=== PATIENT | male | born 1960 | race Caucasian/White ===

== ENCOUNTER 2016-08-15 23:53 | Emergency (ER) | payer BC ==
[~2016-08-15] VITALS: Ht 180.3 cm; Wt 99.8 kg
[2016-08-16] MEDS ORDERED: ALEV220C2 PO (00:02)
[2016-08-16] MEDS ORDERED: GAS-80CH PO (00:03)
[2016-08-16] MEDS ORDERED: PEPT262T2 PO (00:03)
[2016-08-16] MEDS ORDERED: KETOROLAC 30 MG/ML VIAL (J1885) IV ONE (01:00)
[2016-08-16 01:24] LABS: BASO % 0.2 % (0.0-1.0); EOS # 0.1 K/mm3 (0.0-0.50); EOS % 0.9 % (0.0-3.0); LARGE UNSTAINED CELL # 0.1 K/mm3 (0.0-0.4); LARGE UNSTAINED CELL % 0.5 % (0.0-4.0); LYMPH # 0.6 K/mm3 (1.5-4.5); LYMPH % 4.9 % (24.0-44.0); MEAN CORPUSCULAR HGB CONC 32.3 g/dl (32.0-36.5); MEAN CORPUSCULAR VOLUME 86.6 fl (80.0-96.0); MONO # 0.4 K/mm3 (0.0-0.8); MONO % 3.3 % (0.0-5.0); NEUTROPHILS # 11.9 K/mm3 (1.8-7.7); NEUTROPHILS % 90.1 % (36.0-66.0); PLATELET COUNT, AUTOMATED 218 k/mm3 (150-450); RED CELL DISTRIBUTION WIDTH 12.3 % (11.5-14.5); WHITE BLOOD COUNT 13.2 K/mm3 (4.0-10.0)
[2016-08-16 01:37] LABS: ALBUMIN 4.5 GM/DL (3.2-5.2); ALBUMIN/GLOBULIN RATIO 1.36 (1.00-1.93); ALKALINE PHOSPHATASE 99 U/L (45-117); ALT/SGPT 32 U/L (12-78); ANION GAP 7 MEQ/L (8-16); AST/SGOT 18 U/L (15-37); BILIRUBIN,DIRECT 0.2 MG/DL (0.0-0.2); BILIRUBIN,TOTAL 0.7 MG/DL (0.2-1.0); BLOOD UREA NITROGEN 15 MG/DL (7-18); CARBON DIOXIDE LEVEL 29 MEQ/L (21-32); CHLORIDE LEVEL 103 MEQ/L (98-107); CREATININE FOR GFR 0.94 MG/DL (0.70-1.30); GLOMERULAR FILTRATION RATE > 60.0 (>56); GLUCOSE, FASTING 147 MG/DL (70-105); SODIUM LEVEL 139 MEQ/L (136-145); TOTAL PROTEIN 7.8 GM/DL (6.4-8.2)
[2016-08-16] MEDS ORDERED: ISOVUE-370 76% 100ML VIAL (Q9967) As Ordered ONE (02:02)
--- NOTE | 2016-08-16 02:10 | REPUSA ---
CLINICAL HISTORY: Pain. TECHNIQUE: Realtime sonographic images were obtained in multiple projections. COMMENTS: The liver is demonstrates increased echogenicity compatible with fatty infiltration. No discrete hepatic mass is seen. Scattered simple hepatic cysts ranging in size between 8 and 12 mm. There is no intra or extrahepatic biliary ductal dilatation. CBD measures 3.2 mm. The gallbladder is distended containing sludge. Negative sonographic Monreal. The gallbladder wall is not thickened and there is no pericholecystic fluid. There is no abdominal ascites. The right kidney measures 11.5x6.4x5.7 cm, free of hydronephrosis, calculi, cysts or masses. IMPRESSION: Fatty liver. No acute pathology. Scattered simple hepatic cysts. Distended gallbladder containing sludge. Thank you for your kind referral of this patient.
--- NOTE | 2016-08-16 02:30 | REPUSA ---
CLINICAL HISTORY: Abdominal pain. TECHNIQUE: Multiple axial, sagittal and coronal CT images were obtained through the abdomen and pelvi s after administration of intravenous contrast material. COMMENTS: The liver is mildly enlarged with decreased attenuation without mass or defect. There is no intra or extrahepatic biliary ductal dilatation. The spleen is mildly enlarged. The gallbladder is distended w ith diffuse thickening of its wall. Impacted gallstone is suspected at the neck of the gallbladder. T hickening and enhancement of the wall of the gallbladder with a surrounding fat stranding. Pericholec ystic fat stranding. Thickening of the anterior tree and the common bile duct. Surrounding fat strand ing. The pancreas is of normal contour and attenuation characteristics. There is no evidence of adren al mass. Both kidneys demonstrate prompt and equal nephrograms. The kidneys are normal in size, shape and conf iguration. There is no evidence of renal or ureteral mass. No renal or ureteral calculi are identifie d. There is no hydroureter or hydronephrosis. No evidence for appendicitis. There is no bowel wall thickening. No evidence for small or large boo l obstruction. There is no evidence of abdominal ascites or lymphadenopathy. There is no evidence of intrinsic or extrinsic bladder mass. There is no pelvic ascites or lymphadeno lay[place]. Images of the lung bases show no evidence of pleural or parenchymal mass. There are no pleural effusi ons. The bony structures are free of lytic or blastic lesions. Small sliding hiatal hernia. IMPRESSION: Acute cholecystitis. Thickened biliary tree and common bile duct. Recent passage of sludge and/or calculus. Associated asc ending cholangitis is included in the differential diagnosis. This needs clinical evaluation. Nondilated biliary tree. Mild hepatomegaly and fatty liver infiltration. Thank you for your kind referral of this patient.
[2016-08-16 02:47] VITALS: BP 136/87
--- NOTE | 2016-08-16 09:16 | REP ---
ABDOMINAL SERIES: Supine and erect views of the abdomen demonstrate no free air and no evidence for obstruction. No dilated small bowel loops are seen. No abnormal calcifications are seen. There are mild degenerative changes of the spine. An accompanying view of the chest demonstrates no acute infiltrate. The heart is not enlarged. Mediastinal silhouette is unremarkable. IMPRESSION: Negative abdominal series. Signed by Landon Barbosa MD 08/16/2016 12:57 P
[2016-08-16] MEDS ORDERED: ALEV1TAB PO (14:38)
[2016-08-16] MEDS ORDERED: AZEL0.1S3 (14:38)
[2016-08-17] MEDS ORDERED: PERCOCET 5MG/325MG TAB As Ordered ONE (15:46)
== END 2016-08-16 02:50 | disposition home or self-care (01) ==
LOC: M ED 08-16 00:48
DX: K80.20 Calculus of gallbladder without cholecystitis without obstruction (principal); Z88.0 Allergy status to penicillin
CPT/HCPCS: 74022; 74177; 76705; 80048; 80076; 83690; 85025; 99283; Q9967

== ENCOUNTER 2016-08-16 11:15 | Emergency (ER) | payer BC ==
[~2016-08-16 11:15] MED LIST: ALEV220C2 PO; GAS-80CH PO; PEPT262T2 PO
[2016-08-16] MEDS ORDERED: MORPHINE 4 MG/ML 1ML SYRINGE As Ordered ONE (11:57)
[2016-08-16 12:20] LABS: BASO % 0.1 % (0.0-1.0); EOS # 0.1 K/mm3 (0.0-0.50); EOS % 0.6 % (0.0-3.0); LARGE UNSTAINED CELL # 0.1 K/mm3 (0.0-0.4); LARGE UNSTAINED CELL % 0.6 % (0.0-4.0); LYMPH # 0.7 K/mm3 (1.5-4.5); LYMPH % 5.3 % (24.0-44.0); MEAN CORPUSCULAR HEMOGLOBIN 29.5 pg (27.0-33.0); MEAN CORPUSCULAR HGB CONC 34.4 g/dl (32.0-36.5); MEAN CORPUSCULAR VOLUME 85.8 fl (80.0-96.0); MONO # 0.5 K/mm3 (0.0-0.8); MONO % 4.5 % (0.0-5.0); NEUTROPHILS # 10.3 K/mm3 (1.8-7.7); NEUTROPHILS % 88.9 % (36.0-66.0); PLATELET COUNT, AUTOMATED 190 k/mm3 (150-450); RED CELL DISTRIBUTION WIDTH 12.4 % (11.5-14.5); WHITE BLOOD COUNT 11.6 K/mm3 (4.0-10.0)
[2016-08-16 12:31] LABS: ALBUMIN 3.9 GM/DL (3.2-5.2); ALBUMIN/GLOBULIN RATIO 0.98 (1.00-1.93); ALKALINE PHOSPHATASE 93 U/L (45-117); ALT/SGPT 29 U/L (12-78); AMYLASE 46 U/L (25-115); ANION GAP 3 MEQ/L (8-16); AST/SGOT 16 U/L (15-37); BILIRUBIN,DIRECT 0.2 MG/DL (0.0-0.2); BILIRUBIN,TOTAL 0.7 MG/DL (0.2-1.0); BLOOD UREA NITROGEN 12 MG/DL (7-18); CALCIUM LEVEL 9.2 MG/DL (8.5-10.1); CARBON DIOXIDE LEVEL 32 MEQ/L (21-32); CHLORIDE LEVEL 102 MEQ/L (98-107); CREATININE FOR GFR 0.88 MG/DL (0.70-1.30); GLOMERULAR FILTRATION RATE > 60.0 (>56); GLUCOSE, FASTING 128 MG/DL (70-105); POTASSIUM SERUM 3.7 MEQ/L (3.5-5.1); SODIUM LEVEL 137 MEQ/L (136-145); TOTAL PROTEIN 7.9 GM/DL (6.4-8.2)
[2016-08-16] MEDS ORDERED: CIPROFLOXACIN/D5W 400 MG/200 ML BAG (J0744) As Ordered ONE (13:01)
[2016-08-16] MEDS ORDERED: metroNIDAZOLE/NACL 500MG(5MG/ML)100 ML BAG (S0030) As Ordered ONE (13:01)
[2016-08-16] MEDS ORDERED: ALEV1TAB PO (14:38)
[2016-08-16] MEDS ORDERED: AZEL0.1S3 (14:38)
[2016-08-20] MEDS ORDERED: CIPR500T89 PO (11:19)
[2016-08-20] MEDS ORDERED: FLAG500T PO (11:19)
[2016-08-20] MEDS ORDERED: NORCOTAB PO (11:19)
== END 2016-09-01 00:03 | disposition home or self-care (01) ==
LOC: M ED 11:15
DX: K81.0 Acute cholecystitis (principal); Z88.0 Allergy status to penicillin; Z79.2 Long term (current) use of antibiotics; Z79.899 Other long term (current) drug therapy